=== PATIENT | female | born 1930 | race Two or more races ===

== ENCOUNTER 2017-04-27 09:21 | Emergency (ER) | payer OTHER ==
[~2017-04-27] VITALS: Ht 160 cm; Wt 74.4 kg
[~2017-04-27 09:21] MED LIST: ALPRAZOLAM0.25 MG; BUDEPRION SR100 MG; COZAAR100 MG; FAMOTIDINE40 MG; IMDUR30 MG; INDUR; MACRODANTIN100 M1; SIMVASTATIN20 MG; SINGULAIR10 MG; SYNTHROID112 MCG; ULTRAM50 MG; XANAX0.25 MG; ZOLOFT100 MG
[2017-04-27] MEDS ORDERED: ZITHROMAX200 MG PO (13:20)
[2017-04-27] MEDS ORDERED: TUSSI PRES-B L120 M1 PO (13:20)
== END 2017-04-27 14:57 | disposition home or self-care (01) ==
LOC: ER 09:21
DX: J06.9 Acute upper respiratory infection, unspecified (principal); J11.1 Influenza due to unidentified influenza virus with other respiratory manifestations

== ENCOUNTER → 2019-03-21 | Emergency (ER) | payer OTHER ==
[~2019-03-21] VITALS: Ht 157.5 cm; Wt 76.7 kg
[~2019-03-21] MED LIST changes: +TUSSI PRES-B L120 M1 PO; +ZITHROMAX200 MG PO
== END | disposition home or self-care (01) ==
LOC: ER 09:40
DX: B34.9 Viral infection, unspecified (principal)

== ENCOUNTER 2019-09-08 09:29 | Inpatient (IN) | payer OTHER ==
[~2019-09-08] VITALS: Ht 160 cm; Wt 73.5 kg
[2019-09-08] MEDS ORDERED: LEVOTHYROXINE125 MCG (09:44)
[2019-09-08] MEDS ORDERED: ZOLOFT100 MG (09:44)
[2019-09-08] MEDS ORDERED: SINGULAIR10 MG (09:45)
[2019-09-08] MEDS ORDERED: NORVASC2.5 M1 (09:45)
== END 2019-09-10 10:16 | disposition home or self-care (01) | DRG 812 ==
LOC: ER 09:29 → SURH 13:46
PROVIDERS: ADMIT Internal Medicine Cardiovascular Disease
PROC: 30233N1 Transfusion of Nonautologous Red Blood Cells into Peripheral Vein, Percutaneous Approach (ICD-10-PCS; principal; 2019-09-08)
DX: D64.9 Anemia, unspecified (principal); G60.8 Other hereditary and idiopathic neuropathies; E03.8 Other specified hypothyroidism; M54.12 Radiculopathy, cervical region; J06.9 Acute upper respiratory infection, unspecified; Z03.818 Encounter for observation for suspected exposure to other biological agents ruled out